=== PATIENT | male | born 1960 | race Caucasian/White ===

== ENCOUNTER → 2017-09-21 | Outpatient (CLI) | payer OTHER ==
--- NOTE | 2017-09-21 16:14 | US ---
EXAMINATION TYPE: US kidneys/renal and bladder DATE OF EXAM: 09/21/2017 COMPARISON: NONE CLINICAL HISTORY: N28.9Disorder of kidney and ureter, unspecified. Abnormal labs. No pain. EXAM MEASUREMENTS: Right Kidney: 9.5 x 4.8 x 4.4 cm Left Kidney: 9.4 x 4.9 x 5.3 Right Kidney: wnl Left Kidney: appears lobular in appearance Bladder: distended, wnl as visualized Bilateral Jets seen IMPRESSION: 1. Normal renal ultrasound
== END | disposition home or self-care (01) ==
LOC: RADUSWWP 09:40
PROVIDERS: ATTEND Family Medicine
DX: N28.9 Disorder of kidney and ureter, unspecified (principal)
CPT/HCPCS: 76770